=== PATIENT | male | born 1995 | race Caucasian/White ===

== ENCOUNTER 2016-12-27 17:04 | Emergency (ER) | payer BC, OTHER ==
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
[2016-12-27] MEDS ORDERED: HYDROCOD/APAP 5/325 PREPACK#6 BTL TAKEHOME ONE ×2 (18:24)
[2016-12-27 18:38] VITALS: BP 129/61; PULSE 63; RESP 18; TEMP 98.1; O2SAT 95
== END 2016-12-27 18:42 | disposition home or self-care (01) ==
DX: S93.492A Sprain of other ligament of left ankle, initial encounter (principal); V13.4XXA Pedal cycle driver injured in collision with car, pick-up truck or van in traffic accident, initial encounter; Y92.410 Unspecified street and highway as the place of occurrence of the external cause; Y99.8 Other external cause status; Y93.55 Activity, bike riding
CPT/HCPCS: L4350